=== PATIENT | female | born 1935 ===

== ENCOUNTER 2023-01-10 14:57 | Outpatient (CLI) | payer MEDICARE, BC | END 2023-01-10 14:58 | disposition home or self-care (01) | LOC: CSHMAMMO 14:57 | PROVIDERS: ATTEND Internal Medicine | DX: Z13.820 Encounter for screening for osteoporosis (principal); M81.0 Age-related osteoporosis without current pathological fracture; M85.851 Other specified disorders of bone density and structure, right thigh; M85.852 Other specified disorders of bone density and structure, left thigh | CPT/HCPCS: 77080 ==

== ENCOUNTER 2023-02-13 08:54 | Outpatient (CLI) | payer MEDICARE, BC | END 2023-02-13 08:55 | disposition home or self-care (01) | LOC: CSHULT 08:54 | PROVIDERS: ATTEND Internal Medicine | DX: R17 Unspecified jaundice (principal) | CPT/HCPCS: 76700 ==